=== PATIENT | male | born 2000 | race Caucasian/White ===

== ENCOUNTER → 2023-10-22 08:58 | Outpatient (REF) | payer OTHER, SELFPAY | LOC: RAD 08:58 | PROVIDERS: ATTENDING PHYSICIAN Physician Assistant | DX: R07.81 Pleurodynia (principal) | CPT/HCPCS: 71101 ==

== ENCOUNTER 2024-12-08 03:07 | Emergency (ER) | payer OTHER, SELFPAY ==
[2024-12-08] VITALS (7 sets, daily range): BP systolic 100–129; BP diastolic 60–79; BMI 23.2
--- NOTE | 2024-12-08 04:10 | ED.GENMED ---
History of Present Illness
<Haile Park DO - Last Filed: 12/10/24 12:27>
General
Chief Complaint: Abdominal Pain
Source: patient, family, ambulance crew and previous hospital records
Exam Limitations: none
Time Seen by Provider: 12/08/24 03:43
Nursing documentation reviewed up to this point in time: agreed with
History of Present Illness
History of Present Illness:
23-year-old male history of celiac, presents with upper abdominal pain nausea diarrhea occasionally has beer, most recently a few nights ago, he has been suffering with some GI issues since he was age 9 states his celiac was initially fairly
debilitating it is improved, though a few months ago he was in [place] at a libertarian with some friends apparently had some alcohol since has been having GI issues, has had no prior surgeries has had endoscopies, he works lives with his parents, no
history of inflammatory bowel disease personally or in his family, after his trip to [place] he did have some bloody stools which improved
Past History
<Haile Park, DO - Last Filed: 12/10/24 12:27>
Past History
ED Past Medical History: GERD and Other (Celiac)
ED Past Surgical History: Negative Appendectomy or Bowel resection
Social History
Tobacco: Non-smoker (No exposure to secondhand smoke and patient denies smoking.)
Alcohol: Occasional
Drug: None
Personal: Single
Living: with family
Employment: Employed
Family History
Family History: Other
Phy Exam
<Hiale Park, DO - Last Filed: 12/10/24 12:27>
Physical Exam
Physical Exam:
Physical Exam
General: no apparent distress, not acutely ill
Neck: Lips are dry
Heart: s1/s2 regular rate and rhythm, no murmur. equal radial pulses.
Lungs: no acute respiratory distress. clear bilaterally
Abdomen: Mild epigastric tenderness
Neuro: alert and oriented. no focal neurological deficits
Skin: no rash
Psychiatric: well kept. interactive and cooperative
Extremities: no edema.
Course
<Haile Park, DO - Last Filed: 12/10/24 12:27>
Orders/Labs/Results
Orders:
Orders
12/08/24 03:57
CT Abd/pel W Iv And Oral Contr Urgent
Comment:
Reason For Exam: duane vomiting diareha
IV Insert/Care/Rem.- Treatment PRN
0.9% Sodium Chloride 1000 ml [Nss] 1,000 ml IV BOLUS
Iohexol [Omnipaque] See Protocol PO NOW STA
Ondansetron Injectable [Zofran] 4 mg IV NOW STA
Pantoprazole [Protonix IV] 40 mg IV NOW STA
12/08/24 04:03
Complete Blood Count/With Diff Urgent
Comprehensive Metabolic Panel Urgent
ESR [Erythrocyte Sed Rate] Urgent
Lipase Urgent
12/08/24 05:28
0.9% Sodium Chloride 1000 ml [Nss] 1,000 ml IV BOLUS
12/08/24 06:55
Acetaminophen [Tylenol] 1,000 mg PO NOW STA
Abnormal Lab Results
12/08/24
04:03
WBC 13.3 H 10^3/uL
(4.8-10.8)
RBC 6.27 H 10^6/uL
(4.70-6.10)
Hgb 18.4 H g/dL
(13.0-18.0)
Hct 53.7 H %
(39.0-52.0)
Abs Immat Gran (auto) 0.1 H 10^3/uL
(0-0.05)
Absolute Neuts (auto) 11.6 H 10^3/uL
(1.4-6.5)
Absolute Lymphs (auto) 1.0 L 10^3/uL
(1.2-3.4)
Neutrophils % 87.6 H %
(42.2-75.2)
Lymphocytes % 7.5 L %
(20.5-51.1)
Glucose 111 H mg/dl
(70-99)
Calcium 10.7 H mg/dl
(8.4-10.2)
Total Protein 8.9 H g/dl
(6.3-8.2)
Albumin 5.5 H g/dl
(3.5-5.0)
12/08/24 04:03
12/08/24 04:03
Vital Signs
Initial and Last Documented VS:
Initial Vital Signs
Temp Pulse Resp BP Pulse Ox
97.9 F 90 20 100/74 100
12/08/24 03:11 12/08/24 03:11 12/08/24 03:11 12/08/24 03:11 12/08/24 03:11
Last Documented Vital Signs
Temp Pulse Resp BP Pulse Ox
100.8 F H 81 14 123/60 96
12/08/24 08:25 12/08/24 08:15 12/08/24 08:15 12/08/24 08:00 12/08/24 08:15
<Jane Harry DO - Last Filed: 12/08/24 08:15>
Orders/Labs/Results
Orders:
Orders
12/08/24 03:57
CT Abd/pel W Iv And Oral Contr Urgent
Comment:
Reason For Exam: duane vomiting diareha
IV Insert/Care/Rem.- Treatment PRN
0.9% Sodium Chloride 1000 ml [Nss] 1,000 ml IV BOLUS
Iohexol [Omnipaque] See Protocol PO NOW STA
Ondansetron Injectable [Zofran] 4 mg IV NOW STA
Pantoprazole [Protonix IV] 40 mg IV NOW STA
12/08/24 04:03
Complete Blood Count/With Diff Urgent
Comprehensive Metabolic Panel Urgent
ESR [Erythrocyte Sed Rate] Urgent
Lipase Urgent
12/08/24 05:28
0.9% Sodium Chloride 1000 ml [Nss] 1,000 ml IV BOLUS
12/08/24 06:55
Acetaminophen [Tylenol] 1,000 mg PO NOW STA
Abnormal Lab Results
12/08/24
04:03
WBC 13.3 H 10^3/uL
(4.8-10.8)
RBC 6.27 H 10^6/uL
(4.70-6.10)
Hgb 18.4 H g/dL
(13.0-18.0)
Hct 53.7 H %
(39.0-52.0)
Abs Immat Gran (auto) 0.1 H 10^3/uL
(0-0.05)
Absolute Neuts (auto) 11.6 H 10^3/uL
(1.4-6.5)
Absolute Lymphs (auto) 1.0 L 10^3/uL
(1.2-3.4)
Neutrophils % 87.6 H %
(42.2-75.2)
Lymphocytes % 7.5 L %
(20.5-51.1)
Glucose 111 H mg/dl
(70-99)
Calcium 10.7 H mg/dl
(8.4-10.2)
Total Protein 8.9 H g/dl
(6.3-8.2)
Albumin 5.5 H g/dl
(3.5-5.0)
12/08/24 04:03
12/08/24 04:03
Vital Signs
Initial and Last Documented VS:
Initial Vital Signs
Temp Pulse Resp BP Pulse Ox
97.9 F 90 20 100/74 100
12/08/24 03:11 12/08/24 03:11 12/08/24 03:11 12/08/24 03:11 12/08/24 03:11
Last Documented Vital Signs
Temp Pulse Resp BP Pulse Ox
100.8 F H 81 14 123/60 96
12/08/24 08:25 12/08/24 08:15 12/08/24 08:15 12/08/24 08:00 12/08/24 08:15
<Haile Park DO - Last Filed: 12/10/24 12:27>
*Pulse Oximetry
SaO2: 100
Oxygen Mode of Delivery: Room air
Patient hypoxic: no
*Critical Care Note
Total Time (30-74mins, 75-104mins- exclusive of procedures): Not Applicable
<Haile Park DO - Last Filed: 12/10/24 12:27>
Update Note
Update Note:
5:15 AM update labs noted looks dry saline hydration CT scan p.o. and IV contrast, inflammatory markers to screen for inflammatory bowel disease, if all negative will have her follow-up with GI I will try to facilitate that
6 AM patient vomited some contrast confirm he said no prior abdominal surgery states he feels better after he vomited will continue saline hydration as needed antiemetics
<Jane Harry DO - Last Filed: 12/08/24 08:15>
Update Note
Update Note:
5:15 AM update labs noted looks dry saline hydration CT scan p.o. and IV contrast, inflammatory markers to screen for inflammatory bowel disease, if all negative will have her follow-up with GI I will try to facilitate that
6 AM patient vomited some contrast confirm he said no prior abdominal surgery states he feels better after he vomited will continue saline hydration as needed antiemetics
Attending Sign Out (Jane Harry DO)
06:40 -assuming care of patient, 23-year-old male with history of celiac, with poor diet habits, presenting for abdominal pain, nausea vomiting. Hemodynamically stable emergency department, mild leukocytosis on laboratory analysis. Pending CT
abdomen pelvis with IV and oral contrast.
08:15 -patient CT without acute abnormality. Patient did spike a temperature with Tylenol administered. Vital signs otherwise remained stable. In the setting of fever, nausea, vomiting, diarrhea, suspect viral gastroenteritis. Ultimately however
feel stable for discharge with outpatient GI and PCP follow-up. Advised diet modification, supportive therapy with Tylenol for fever and bland diet. Return precautions discussed and patient and mother verbalized understanding.
ED Attending Note
<Haile Park, DO - Last Filed: 12/10/24 12:27>
-
Portions of this chart may have been created with voice recognition software.� Occasional wrong word or��sound alike� substitutions may have occurred due to the inherent limitations of voice recognition software.
Discharge Plan
Departure
Patient Disposition: Home (Routine Discharge)
Date of Disposition: 12/08/24
Time of Disposition: 08:15
Patient with high blood pressure during this ER visit?: No
Condition: Good
Discharge Problem:
Celiac disease, Abdominal pain with vomiting
Instructions: Viral gastroenteritis in adults, Abdominal Pain
Prescriptions:
New
ondansetron 4 mg tablet,disintegrating
4 mg PO Q8H PRN (Reason: nausea and vomiting) Qty: 14 0RF
pantoprazole [Protonix] 40 mg tablet,delayed release (DR/EC)
40 mg PO DAILY Qty: 20 0RF
ondansetron 4 mg Tablet,Disintegrating
4 mg PO TIDPRN PRN (Reason: nausea/vomiting) Qty: 6 0RF
Referrals:
Haile Mendoza PA [Family Provider, Family Practice]
Virgil Myers MD [Active, Gastroenterology] - Next open appointment
Activity Restrictions/Additional Instructions:
You were seen in the emergency department for abdominal pain
You were found to have reassuring laboratory analysis and CT imaging of your abdomen. We recommend that you follow-up with the gastrointestinal specialist and your primary care doctor
Please follow-up closely with your primary care physician.
Return to the emergency department for any worsening of your symptoms, or any development of chest pain, difficulty breathing, abdominal pain with persistent vomiting and inability to tolerate food or liquid by mouth (concern for dehydration),
weakness, headache or confusion, fever greater than 100.4, or any additional symptoms that are concerning to you.
Thank you for choosing [facility].
Interventions
Interventions:
*Risk Screen - Suicide Last Done: 12/08/24 03:11
*General Assessment Last Done: 12/08/24 03:46
*Neglect/Abuse Screening Last Done: 12/08/24 03:11
*ED- Fall Risk Assessment Last Done: 12/08/24 03:46
*ED COVID-19 Vaccine History Last Done: 12/08/24 03:46
*Nursing Disposition Last Done: 12/08/24 08:26
AA-Zfqosf-Ncyftaxmwr Assessment Last Done: 12/08/24 03:46
Discharge Date and Time
Discharge Date/Time: 12/08/24 08:33
Print Language: [place]AST [place]
[2024-12-08] MEDS: NSS 1000 IV ×2 (04:16→05:39)
[2024-12-08] MEDS: OMNIPAQUE 50 ML PO (04:17)
[2024-12-08] MEDS: ZOFRAN 4 MG IV (04:17)
[2024-12-08] MEDS: PROTONIX IV 40 MG IV (04:17)
[2024-12-08 04:18] LABS: Hematocrit 53.7 % (39.0-52.0); Hemoglobin 18.4 g/dL (13.0-18.0); Mean Corp Hgb Conc. 34.3 g/dL (33.0-37.0); Mean Corpuscular Volume 85.6 fL (80.0-94.0); Nucleated Red Blood Cells % 0 % (-); Platelet Count 202 10^3/uL (130-400); Red Cell Dist. Width 12.4 % (11.5-14.5)
[2024-12-08 04:38] LABS: ALT (SGPT) 18 U/L (0-50); AST (SGOT) 18 U/L (17-59); Albumin 5.5 g/dl (3.5-5.0); Alkaline Phosphatase 60 U/L (38-126); Blood Urea Nitrogen 17 mg/dl (9-20); Calcium 10.7 mg/dl (8.4-10.2); Carbon Dioxide 28 mmol/L (22-30); Chloride 102 mmol/L (98-107); Estimated Creatinine Clearance 124 ml/min; Glucose 111 mg/dl (70-99); Lipase 76 U/L (23-300); Potassium 3.8 mmol/L (3.5-5.1); Sodium 142 mmol/L (135-145); Total Protein 8.9 g/dl (6.3-8.2); eGFR > 60.00
[2024-12-08] MEDS: TYLENOL 1000 MG PO (07:03)
== END 2024-12-08 08:33 | disposition home or self-care (01) ==
LOC: EMR 03:07
PROVIDERS: Emergency Medicine; EMERGENCY PHYSICIAN Student in an Organized Health Care Education/Training Program; FAMILY PHYSICIAN Physician Assistant
DX: K90.0 Celiac disease (principal); R11.2 Nausea with vomiting, unspecified; R10.10 Upper abdominal pain, unspecified
CPT/HCPCS: 96374; 96375; 96361; 99284; 74177; 80053; 83690; 85025; 85652; Q9967

== ENCOUNTER 2025-01-02 06:17 | Day surgery (SDC) | payer OTHER, SELFPAY | END 2025-01-02 10:44 | disposition home or self-care (01) | LOC: GI 06:17 | PROVIDERS: ATTENDING PHYSICIAN Internal Medicine Gastroenterology | DX: K29.70 Gastritis, unspecified, without bleeding (principal); K90.0 Celiac disease; R11.2 Nausea with vomiting, unspecified; Z87.19 Personal history of other diseases of the digestive system | CPT/HCPCS: 43239; 88305; 88342 ==